=== PATIENT | male | born 1995 | race American Indian/Alaskan Native ===

== ENCOUNTER 2016-11-22 16:49 | Emergency (ER) | payer SELFPAY ==
[2016-11-22 17:41] VITALS: BP 133/86
== END 2016-11-22 20:20 | disposition left against medical advice (07) ==
LOC: ED 16:49
DX: M79.89 Other specified soft tissue disorders (principal); L29.9 Pruritus, unspecified; Z53.21 Procedure and treatment not carried out due to patient leaving prior to being seen by health care provider